=== PATIENT | female | born 1975 | race African-American/Black ===

== ENCOUNTER 2020-05-12 20:31 | Inpatient (IN) | payer OTHER ==
[2020-05-09 23:35] VITALS: BP 119/78
[~2020-05-12] VITALS: Ht 152.4 cm; Wt 65.8 kg
[~2020-05-12 20:31] MED LIST: AMBIEN 5 MG TABL5 M1; AMOXICILLIN 50500 MG PO; DIFLUCAN150 M1 PO; MOBIC7.5 MG PO; NORCO 5-325 TA1 EACH PO
[2020-05-12 20:47] VITALS: BP 124/70
[2020-05-12 21:03] LABS: URINE BILIRUBIN NEGATIVE (Negative); URINE BLOOD NEGATIVE (Negative); URINE CLARITY CLEAR; URINE COLOR YELLOW; URINE GLUCOSE-RANDOM* NEGATIVE (Negative); URINE KETONES NEGATIVE (Negative); URINE LEUKOCYTES-REFLEX NEGATIVE (Negative); URINE NITRITE-REFLEX NEGATIVE (Negative); URINE PROTEIN (DIPSTICK) NEGATIVE (Negative); URINE UROBILINOGEN 0.2 E.U./dl (0.2-1.0)
[2020-05-12 21:49] LABS: ABSOLUTE NEUTROPHILS 6.4 thou/uL (1.4-8.2); BASOPHILS 0.3 % (0.0-2.0); EOSINOPHILS 1.5 % (0.0-3.0); HEMATOCRIT 43.7 % (37.0-47.0); HEMOGLOBIN 14.7 gm/dL (12.0-15.0); LYMPHOCYTES 18.2 % (24.0-44.0); MCH 30.7 pg (26.0-34.0); MCHC 33.7 g/dL (28.0-37.0); MONOCYTES 5.7 % (1.0-8.0); PLATELET COUNT 257 thou/uL (150-400); POLYS 74.3 % (36.0-66.0); WBC 8.7 thou/uL (4.0-11.0)
[2020-05-12 22:02] LABS: ANION GAP 14 mmol/L (7-16); BUN 6 mg/dL (7-18); CHLORIDE 103 mmol/L (98-107); CO2 25 mmol/L (21-32); CREATININE 0.9 mg/dL (0.6-1.0); GLUCOSE 106 mg/dL (74-106); POTASSIUM 4.1 mmol/L (3.5-5.1); SODIUM 142 mmol/L (136-145)
[2020-05-12 22:13] LABS: ALBUMIN 4.1 g/dL (3.4-5.0); AMYLASE 50 U/L (25-115); DIRECT BILIRUBIN 0.1 mg/dL (<0.1-0.2); LIPASE 121 U/L (73-393); SGOT 34 U/L (15-37); SGPT 19 U/L (30-65); TOTAL BILIRUBIN 1.3 mg/dL (0.2-1.0); TOTAL PROTEIN 8.2 g/dL (6.4-8.2); TROPONIN-I <0.06 ng/mL (<0.06)
[2020-05-12 23:06] VITALS: BP 114/72
[2020-05-12 23:15] VITALS: BP 126/76
[2020-05-12 23:35] VITALS: BP 119/78
--- NOTE | 2020-05-13 00:19 | NUR ---
ASSUMED CARE OF PT FROM ER AT 2330HRS. VITAL SIGNS TAKEN. PT WAS UNHAPPY REGARDING VISITOR POLICY. PT SIGINED AMA AND LEFT THE UNIT WITH HER BELONGINGS ON 05/13/20 AT 0020HRS. IV ACCESS REMOVED. DR LU TO BE NOTIFIED.
--- NOTE | 2020-05-13 00:28 | NUR ---
Pt told this nurse that she was informed in the emergency room her significant other could visit and stay the night with her. She was very upset that her boyfriend was not allowed to visit/stay tonight. I explained extensively the visiting policy, however, the patient still requested to leave AMA. Pt was informed of the risks and AMA paper was signed.
--- NOTE | 2020-05-15 13:08 | EKG ---
[address] [place] [address] ELECTROCARDIOGRAM REPORT Name: DIAAN RICHARDSON [facility] Room #: 455-P [facility] IN M.R.#: [id number] Admission: 05/12/20 Attend Phys: Marco Evans, Discharge: 05/13/20 Date of : 79 Report #: [id number] [facility] ED Test Date: 2020-05-12 Test Time: 21:29:00 Pat Name: DIANA RICHARDSON Department: Room: 455 Gender: F Director [employer]: [employer]o : 1975 Requested By: Esperanza Evans Order Number: [id number] MD: Papito Ponce Measurements Intervals [place] Rate: 68 P: 58 WI: 181 QRS: 78 QRSD: 102 T: 63 QT: 399 QTc: 425 Interpretive Statements Sinus rhythm Probable left atrial enlargement ST elev, probable normal early repol pattern No previous ECG available for comparison Electronically Signed On 05-15-2020 13:08:23 CDT by Papito Ponce [email or web address] <ELECTRONICALLY SIGNED> By: Papito Ponce MD, [facility] 05/15/20 1308 28 28 Papito Ponce MD, [facility] /EPI
== END 2020-05-13 00:20 | disposition left against medical advice (07) | DRG 446 ==
LOC: ER 20:31 → EROBS 23:26 → 4W 23:27
PROVIDERS: Emergency Medicine; ADMIT Surgery; ATTEND Surgery
DX: K80.70 Calculus of gallbladder and bile duct without cholecystitis without obstruction (principal); Z53.21 Procedure and treatment not carried out due to patient leaving prior to being seen by health care provider; Z20.822 Contact with and (suspected) exposure to COVID-19; Z90.711 Acquired absence of uterus with remaining cervical stump; Z79.899 Other long term (current) drug therapy
CPT/HCPCS: 10040